=== PATIENT | male | born 1950 | race Caucasian/White ===

== ENCOUNTER 2017-01-27 15:05 | Emergency (ER) | payer OTHER ==
[~2017-01-27] VITALS: Ht 175.3 cm; Wt 87.6 kg
[2017-01-27] MEDS ORDERED: NAPROSYN500 MG PO (18:04)
[2017-01-27] MEDS ORDERED: FLEXERIL10 MG PO (18:04)
[2017-01-27 18:32] VITALS: BP 133/92
== END 2017-01-27 18:33 | disposition home or self-care (01) ==
LOC: EME 15:05
DX: S46.002A Unspecified injury of muscle(s) and tendon(s) of the rotator cuff of left shoulder, initial encounter (principal); W01.0XXA Fall on same level from slipping, tripping and stumbling without subsequent striking against object, initial encounter; F17.200 Nicotine dependence, unspecified, uncomplicated; F10.10 Alcohol abuse, uncomplicated; F12.90 Cannabis use, unspecified, uncomplicated
CPT/HCPCS: 73030; 99281; 99284